=== PATIENT | male | born 1960 | race Caucasian/White ===

== ENCOUNTER 2020-12-14 08:36 | Emergency (ER) | payer BC, SELFPAY ==
--- NOTE | ~2020-12-14 | XR_ITS ---
EXAMINATION: XR chest 2V DATE: 12/14/2020 08:52 INDICATION: Chest pain. TECHNIQUE: Frontal and lateral views of the chest were obtained. COMPARISON: CT abdomen and pelvis 03/24/2018 FINDINGS: There is no pneumonia, pleural effusion, or pneumothorax. The heart size is normal. 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 Surgical clips in the rig ht upper quadrant are likely from cholecystectomy. There is an old healed fracture of left clavicle. IMPRESSION: 1. No acute cardiopulmonary disease. Reviewed, dictated and finalized at location A.
[2020-12-14 08:39] VITALS: BP 177/105; PULSE 89; RESP 15; TEMP 36.7; O2SAT 99
--- NOTE | 2020-12-14 08:39 | ECG_ITS ---
Measurements Intervals [place] Rate: 84 P: 23 FL: 148 QRS: -22 QRSD: 85 T: 10 QT: 326 QTc: 386 Interpretive Statements SINUS RHYTHM EARLY PRECORDIAL R/S TRANSITION BORDERLINE T WAVE ABNORMALITY- INFERIOR LEADS BASELINE ARTIFACT- I, II, III, AVR, AVL, AVF BORDERLINE ECG Electronically Signed On 12-14-2020 8:58:40 CDT by Andrés Shelton D.O.
[2020-12-14 08:50] VITALS: PULSE 89
[2020-12-14] MEDS: ASPIRIN 81 MG CHEWABLE TABLET 324 MG PO (08:53)
[2020-12-14 08:55] LABS: Basophils Percent Auto 0.3 % (0.2-1.2); Eosinophils Absolute Auto 0.1 K/mm3 (0-0.3); Hematocrit 45.2 % (42.0-52.0); Immature Granulocyte Absolute 0.03 K/mm3 (0.00-0.031); Immature Granulocyte Percent A 0.5 % (0-0.5); Lymphocytes Absolute Auto 1.83 K/mm3 (0.9-3.2); Lymphocytes Percent Auto 31.7 % (18.3-44.2); Mean Corpuscular HGB Conc 33.2 g/dl (32-36); Mean Corpuscular Hemoglobin 29.6 pg (26-34); Mean Corpuscular Volume 89.2 fl (80-100); Mean Platelet Volume 10.5 fl (7.4-10.4); Monocytes Absolute Auto 0.5 K/mm3 (0.1-0.6); Monocytes Percent Auto 7.8 % (2.6-8.5); Neutrophils Absolute Auto 3.4 K/mm3 (1.3-6.7); Neutrophils Percent Auto 58.7 % (45.5-73.1); Platelet Count Result 178 k/mm3 (150-375); Red Blood Count 5.07 M/mm3 (4.6-6.20); White Blood Count 5.8 K/mm3 (4.5-10.0)
[2020-12-14 08:59] VITALS: BP 149/100; PULSE 78; RESP 16; O2SAT 98
[2020-12-14 09:02] LABS: Anion Gap 10 mmol/L (8-16); Blood Urea Nitrogen 14 mg/dL (9-20); Calcium 9.5 mg/dL (8.4-10.2); Carbon Dioxide 21 mmol/L (22-30); Chloride 109 mmol/L (98-107); Estimated CRCL calculation 72 ml/min; Estimated Glomerular Filt Rate > 60; Glucose 96 mg/dL (75-110); Potassium 4.3 mmol/L (3.4-5.0); Sodium 140 mmol/L (137-145)
[2020-12-14 09:17] LABS: Troponin I < 0.012 ng/mL (0.000-0.034)
[2020-12-14 09:25] LABS: INR 0.9; Prothrombin Time 12.5 Seconds (11.1-14.7)
[2020-12-14 09:27] LABS: Partial Thromboplastin Time 25.2 SECONDS (22.3-36.8)
--- NOTE | 2020-12-14 10:11 | ED.CHESTPAIN ---
HPI - Chest Pain General Chief Complaint: Chest Pain Stated Complaint: CP Time Seen by Provider: 12/14/20 09:59 Source: patient and RN notes reviewed Mode of arrival: ambulatory Limitations: no limitations History of Present Illness HPI narrative: 60 years old white male presents with intermittent central chest spasm-like pulled muscle started 3 to 4 days ago, last not more than 2 seconds each time, denies aggravating or relieving factors, patient denies any fever, chills, nausea, vomiting, shortness of breath, back pain. Patient also denies any respiratory symptoms. Patient started working out for the first time 2 weeks ago including lifting weight and stretching muscles. Currently patient is asymptomatic. Patient does not take medicine at home, does not smoke or uses drugs, drinks 2 beers daily. No family history of coronary artery disease. Patient is physically active and still working. Related Data Home Medications Medication Instructions Recorded Confirmed Vitamin D3 12/14/20 Allergies Allergy/AdvReac Type Severity Reaction Status Date / Time No Known Allergies Allergy Verified 12/14/20 08:43 Review of Systems Review of Systems: Narrative: CONSTITUTIONAL: Denies fever, chills, or sweats. EYES: Denies visual changes, redness, or discharge. ENT: Denies rhinorrhea, congestion, sore throat, or otalgia. CARDIOVASCULAR: Denies chest pain, palpitations, or edema. RESPIRATORY: Denies cough or dyspnea. GASTROINTESTINAL: Denies abdominal pain, nausea, vomiting, or diarrhea. GENITOURINARY: Denies dysuria or hematuria. SKIN: Denies rash or itching. MUSCULOSKELETAL: Denies back pain, joint pain, or myalgia. NEUROLOGIC: Denies headache, numbness, or weakness. PSYCHIATRIC: Denies anxiety or depression. PMFSH Family History Family History Father Hypertension Mother Hypertension Other Family history of coronary artery disease Family history of throat cancer Social History Social History Smoking status: Never smoker Alcohol intake: current Gender identity (if verbalized by the patient): Male Exam Narrative: Exam Narrative: General appearance: Well-developed, well-nourished Skin: Normal color Head: Normocephalic, nontraumatic Eyes: Clear conjunctiva ENT: Oropharynx normal, ears normal, nose normal Neck: Supple, nontender Chest and respiratory: Airway patent, no respiratory distress, no accessory muscle use Heart: Regular rate/rhythm Abdomen: Soft, nontender, no organomegaly, quiet bowel sounds Vascular: Normal peripheral pulses, normal capillary refill. Musculoskeletal: Normal range of motion, nontender back Neurologic: Alert and oriented ?3, MORNING SHOW HOST is normal as tested, no gross motor deficit Course Course Emergency Course: Stable, asymptomatic Vital Signs Vital signs: Vital Signs Temperature 36.7 C 12/14/20 08:39 Pulse Rate 89 12/14/20 08:39 Respiratory Rate 15 12/14/20 08:39 Blood Pressure 177/105 H 12/14/20 08:39 Pulse Oximetry 99 12/14/20 08:39 Temperature 36.7 C 12/14/20 08:39 Pulse Rate 78 12/14/20 08:59 Respiratory Rate 16 12/14/20 08:59 Blood Pressure 149/100 H 12/14/20 08:59 Pulse Oximetry 98 12/14/20 08:59 MDM - Chest Pain MDM Narrative Medical decision making narrative: Patient presents with the above symptoms. Musculoskeletal, anxiety/stress are my concern. Patient does not have any coronary artery risk factors, Labs, EKG, chest x-ray showed no acute abnormalities Patient will be discharged on anti-inflammatory medications, to follow-up with family physician/cardiologi
[2020-12-14 10:29] VITALS: BP 140/91; PULSE 67; RESP 20; O2SAT 97
== END 2020-12-14 10:30 | disposition home or self-care (01) ==
PROVIDERS: Emergency Provider Emergency Medicine; PCP Pediatrics
DX: R07.89 Other chest pain (principal); R94.31 Abnormal electrocardiogram [ECG] [EKG]
CPT/HCPCS: 36415; 71046; 80048; 84484; 85025; 85610; 85730; 93005; 99284; A9270

== ENCOUNTER 2022-04-18 10:11 | Outpatient (CLI) | payer BC, SELFPAY ==
[2022-04-18 10:50] LABS: Hematocrit 41.9 % (42.0-52.0); Hemoglobin 14.2 g/dL (14.0-18.0); Mean Corpuscular HGB Conc 33.9 g/dl (32-36); Mean Corpuscular Hemoglobin 29.8 pg (26-34); Mean Corpuscular Volume 87.8 fl (80-100); Platelet Count Result 203 k/mm3 (150-375); Red Blood Count 4.77 M/mm3 (4.6-6.20); Red Cell Distribution Width 12.5 % (11.5-14.5)
[2022-04-18 11:03] LABS: Alanine Aminotransferase 18 U/L (6-50); Albumin Level 4.4 g/dL (3.5-5.1); Alkaline Phosphatase 111 U/L (38-126); Anion Gap 7 mmol/L (8-16); Aspartate Amino Transferase 21 U/L (17-59); Bilirubin,Total 0.6 mg/dL (0.2-1.3); Blood Urea Nitrogen 16 mg/dL (9-20); Calcium 9.3 mg/dL (8.4-10.2); Carbon Dioxide 28 mmol/L (22-30); Chloride 107 mmol/L (98-107); Cholesterol 176 mg/dL (0-200); Estimated Glomerular Filt Rate > 60; Glucose 94 mg/dL (65-110); HDL Direct 45 mg/dL; Potassium 4.4 mmol/L (3.4-5.0); Sodium 142 mmol/L (137-145); Triglycerides 64 mg/dL (<150)
[2022-04-18 11:14] LABS: LDL Cholesterol Direct 100 mg/dL
[2022-04-18 11:34] LABS: Prostate Specific Antigen 5.5 ng/mL (< OR = 4.0)
[2022-04-18 12:07] LABS: Vitamin D 25 Hydroxy 70.7 ng/mL
== END 2022-04-18 10:12 | disposition home or self-care (01) ==
DX: Z00.00 Encounter for general adult medical examination without abnormal findings (principal); Z13.220 Encounter for screening for lipoid disorders; Z12.5 Encounter for screening for malignant neoplasm of prostate
CPT/HCPCS: 36415; 80053; 80061; 82306; 82607; 84153; 84443; 85027; G0103

== ENCOUNTER 2023-05-07 09:42 | Emergency (ER) | payer BC, SELFPAY ==
[2023-05-07 09:56] VITALS: BP 129/93; PULSE 79; RESP 18; TEMP 36.8; O2SAT 100
--- NOTE | 2023-05-07 10:08 | ED.WOUNDLAC ---
HPI - Wound/Laceration General Chief Complaint: Wound/Laceration Stated Complaint: Suture Removal Head Time Seen by Provider: 05/07/23 10:09 Source: patient and RN notes reviewed Mode of arrival: ambulatory Limitations: no limitations History of Present Illness HPI narrative: Patient presents today for staple removal from his scalp. Five days ago he had 3 raina placed when he was out of town helping a friend move. He had a large piece of furniture above his head when it struck him in the scalp. Denies any difficulties with the raina or his wound. Related Data Home Medications Medication Instructions Recorded Confirmed No Home Medications 05/07/23 05/07/23 Allergies Allergy/AdvReac Type Severity Reaction Status Date / Time No Known Allergies Allergy Verified 05/07/23 10:00 Review of Systems Review of Systems: CONSTITUTIONAL: Denies body aches, fever, chills, or sweats. EYES: Denies visual changes, redness, or discharge. ENT: Denies rhinorrhea, congestion, sore throat, or otalgia. CARDIOVASCULAR: Denies chest pain, palpitations, or edema. RESPIRATORY: Denies cough or dyspnea. GASTROINTESTINAL: Denies abdominal pain, nausea, vomiting, or diarrhea. GENITOURINARY: Denies dysuria or hematuria. SKIN: Denies rash, itching. + scalp wound MUSCULOSKELETAL: Denies back pain, joint pain, or myalgia. NEUROLOGIC: Denies headache, numbness, tingling, or weakness. PSYCH: Denies depression or anxiety. PMFSH Family History Family History Father Hypertension Mother Hypertension Other Family history of coronary artery disease Family history of throat cancer Social History Social History Smoking status: Never smoker Alcohol intake: current Gender identity (if verbalized by the patient): Male Comments At time of signature, I have reviewed and agree with nursing past medical, surgical, social and family history unless otherwise noted. Please see nursing chart for further information. There is no relevant family history pertinent to the presenting complaint Exam Narrative: GENERAL: Well-appearing, well-nourished, and in no acute distress. HEAD: Normocephalic, atraumatic. EYES: EOMI. No redness or drainage. Conjunctivae normal. ENT: Mucous membranes pink and moist. NECK: Normal AROM. CHEST: No respiratory distress. EXTREMITIES: Normal range of motion. No edema. SKIN: Warm, dry, no rash. Capillary refill normal. Normal skin turgor. 3 intact raina to crown of scalp. NEURO: No focal deficits. Alert and oriented x3. Gait steady. PSYCH: Normal affect. No signs of depression or anxiety. Course Course Level of Care: Express Care Visit Vital Signs Vital signs: Vital Signs Oxygen Delivery Room Air 05/07/23 09:55 Temperature 98.3 F 05/07/23 09:56 Pulse Rate 79 05/07/23 09:56 Respiratory Rate 18 05/07/23 09:56 Blood Pressure 129/93 H 05/07/23 09:56 Pulse Oximetry 100 05/07/23 09:56 Oxygen Delivery Room Air 05/07/23 09:56 Reviewed Procedures Other Procedure Procedure 1: Other Procedure: 3 raina removed from scalp. Patient tolerated procedure well. MDM - Wound/Laceration MDM Narrative Medical decision making narrative: Raina were removed successfully. No signs of infection. Differential Diagnosis Differential diagnosis: Likely laceration and other (Staple removal) Critical Care Time Critical Care Time Critical Care Time: No Discharge Plan Discharge Clinical Impression: Removal of raina Patient Disposition: Home, Self-Care Condition: Stable Additional Instructions: Your raina have been removed today. Your wound seems to be healing well. Wash with shampoo is normal. Follow-up with your PCP with any concerns. Your blood pressure was elevated above 120/80 today at Urgent Care. This puts you abo
== END 2023-05-07 10:12 | disposition home or self-care (01) ==
PROVIDERS: Emergency Provider Nurse Practitioner
DX: S01.01XD Laceration without foreign body of scalp, subsequent encounter (principal); W22.8XXD Striking against or struck by other objects, subsequent encounter
CPT/HCPCS: 99211; G0463